=== PATIENT | female | born 1980 | race Caucasian/White ===

== ENCOUNTER 2024-11-02 15:13 | Emergency (ER) | payer OTHER, SELFPAY ==
[2024-11-02 15:47] VITALS: BP 122/81; PULSE 98; TEMP 36.6; O2SAT 100; BMI 20.6
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
[2024-11-02 16:14] LABS: HCG Qualitative Urine* NEGATIVE (NEGATIVE); Internal Control Within Normal Limits
--- NOTE | 2024-11-02 16:28 | PC.NURSE ---
Pain to left rib cage area, denies SOB, no bruising or redness at this time.
[2024-11-02] MEDS: HYDROCODONE/ACET 5-325 MG TABLET 1 TAB PO (16:49)
[2024-11-02] MEDS: ORPHENADRINE 60 MG/ 2 ML VIAL IM (16:49)
[2024-11-02] MEDS: KETOROLAC TROMETHAMINE 30 MG/ML VIAL IM (16:49)
[2024-11-02] MEDS: AMOXICILLIN 500 MG CAPSULE PO (19:23)
[2024-11-02] MEDS: HYDROCODONE/ACET 5-325 MG TABLET 2 TAB PO (19:23)
== END 2024-11-02 19:55 | disposition home or self-care (01) ==
PROVIDERS: Physician Assistant; Emergency Provider Emergency Medicine
DX: S22.32XA Fracture of one rib, left side, initial encounter for closed fracture (principal); S09.8XXA Other specified injuries of head, initial encounter; S02.2XXA Fracture of nasal bones, initial encounter for closed fracture; Y04.8XXA Assault by other bodily force, initial encounter; Z48.02 Encounter for removal of sutures
CPT/HCPCS: 70450; 70486; 71250; 84703; 94667; 96372; 99285; J1885; J2360